=== PATIENT | male | born 1945 | race African-American/Black ===

== ENCOUNTER 2017-03-30 06:50 | Outpatient (RCR) | payer SELFPAY ==
[~2017-03-30] VITALS: Ht 180.3 cm; Wt 76.7 kg
[2017-04-01] MEDS ORDERED: Methohexital Sodium Syr 100mg/10ml IVP ONE (08:00)
[2017-04-01] MEDS ORDERED: Midazolam 2mg/2ml Inj ONE (08:00)
[2017-04-01] MEDS ORDERED: Succinylcholine 20mg/ml 10ml vial ONE (08:00)
[2017-04-01] MEDS ORDERED: NS 500ML ONE (08:00)
[2017-04-01 08:51] VITALS: BP 145/83
[2017-04-01] MEDS ORDERED: Sodium Chloride 500ML 500 ML IV ONE (09:06)
[2017-04-01 09:10] VITALS: BP 161/69
[2017-04-01 09:15] VITALS: BP 162/62
[2017-04-01 09:20] VITALS: BP 172/72
[2017-04-01 09:25] VITALS: BP 163/66
[2017-04-01 11:18] VITALS: BP 145/83
[2017-04-04] MEDS ORDERED: Succinylcholine 20mg/ml 10ml vial ONE (08:00)
[2017-04-04] MEDS ORDERED: Midazolam 2mg/2ml Inj ONE (08:00)
[2017-04-04] MEDS ORDERED: NS 500ML ONE (08:00)
[2017-04-04] MEDS ORDERED: Methohexital Sodium Syr 100mg/10ml IVP ONE (08:00)
[2017-04-04 08:45] VITALS: BP 155/92
[2017-04-04] MEDS ORDERED: Atropine Sulfate 0.4mg/ml inj IVP PRN (08:58)
[2017-04-04] MEDS ORDERED: Sodium Chloride 500ML 500 ML IV ONE ×2 (08:58→10:45)
[2017-04-04 09:00] VITALS: BP 153/66
[2017-04-04 09:05] VITALS: BP 150/64
[2017-04-04 09:10] VITALS: BP 152/63
[2017-04-04 09:15] VITALS: BP 161/81
[2017-04-04 09:20] VITALS: BP 156/59
[2017-04-06] MEDS ORDERED: Methohexital Sodium Syr 100mg/10ml IVP ONE (08:00)
[2017-04-06] MEDS ORDERED: NS 500ML ONE (08:00)
[2017-04-06] MEDS ORDERED: Midazolam 2mg/2ml Inj ONE (08:00)
[2017-04-06] MEDS ORDERED: Succinylcholine 20mg/ml 10ml vial ONE (08:00)
[2017-04-06 08:53] VITALS: BP 162/89
[2017-04-06] MEDS ORDERED: Sodium Chloride 500ML 500 ML IV ONE (09:11)
[2017-04-06 09:15] VITALS: BP 150/67
[2017-04-06 09:20] VITALS: BP 155/62
[2017-04-06 09:25] VITALS: BP 151/65
[2017-04-06 09:30] VITALS: BP 165/68
[2017-04-06 09:35] VITALS: BP 159/66
== END 2017-04-06 | disposition home or self-care (01) ==
LOC: EDBD 06:50 → ECT 06:50
DX: F33.3 Major depressive disorder, recurrent, severe with psychotic symptoms (principal)
CPT/HCPCS: 90870; J0330; J2250; J7040